=== PATIENT | male | born 1950 | race Caucasian/White ===

== ENCOUNTER → 2018-02-07 | Outpatient (CLI) | payer OTHER, MEDICAID | LOC: FIMAGING 10:11 | PROVIDERS: ATTEND Physician Assistant | DX: Z13.6 Encounter for screening for cardiovascular disorders (principal) ==

== ENCOUNTER → 2018-05-20 | Outpatient (CLI) | payer OTHER, MEDICAID | LOC: FIMAGING 11:20 | DX: R80.9 Proteinuria, unspecified (principal); R39.198 Other difficulties with micturition ==

== ENCOUNTER → 2018-07-08 | Outpatient (CLI) | payer OTHER, MEDICAID ==
[~2018-07-08] MED LIST: IOPAMIDOL (ISOVUE-300) 100 ML BTL ONE
== END ==
LOC: FIMAGING 12:49
PROVIDERS: ATTEND Physician Assistant Medical
DX: N39.0 Urinary tract infection, site not specified (principal); R31.0 Gross hematuria; R39.15 Urgency of urination
CPT/HCPCS: 74178; Q9967; 82565-PO